=== PATIENT | female | born 1980 ===

== ENCOUNTER 2022-10-04 00:37 | Emergency (ER) | payer BC ==
[2022-10-04] MEDS ORDERED: NA CHLORIDE 0.9% 1,000 ML ONE (00:59)
[2022-10-04] MEDS ORDERED: FAMOTIDINE 20 MG/2 ML VIAL IV ONE (00:59)
[2022-10-04] MEDS ORDERED: MORPHINE 4 MG/ML SYR ONE (00:59)
[2022-10-04] MEDS ORDERED: ONDANSETRON 4 MG/2 ML VIAL ONE (00:59)
[2022-10-04 01:09] LABS: Absolute Lymphocytes (CBC) 4.9 K/uL (0.7-4.9); Hematocrit 38.7 % (36.0-45.0); Lymphocytes % 43.5 % (15.3-44.8); MCV 89.8 fL (80-100); MPV 7.5 fL (7.6-11.3); RBC Red Blood Cell Count 4.31 M/uL (3.86-4.86)
[2022-10-04] MEDS ORDERED: HYDROMORPHONE HCL 1 MG/ML INJ ONE (01:26)
[2022-10-04] MEDS ORDERED: PROMETHAZINE INJ 25 MG/ML AMP ONE (01:26)
[2022-10-04 01:27] LABS: Albumin 3.8 g/dL (3.4-5.0); Bilirubin Total 0.2 mg/dL (0.2-1.0); Potassium 3.6 mEq/L (3.5-5.1); Protein, Total 7.1 g/dL (6.4-8.2)
--- NOTE | 2022-10-04 02:07 | ER ---
Nurse's Notes [facility] Name: Johny Lewis Age: 41 yrs Sex: Female : 1980 Arrival Date: 10/04/2022 Time: 00:37 Bed 6 Private MD: Diagnosis: Torsion of right ovary and ovarian pedicle;Other and unspecified ovarian cysts-Hemorrhagic Presentation: 10/04 01:00 Chief complaint: Patient states: abdominal pain all day. 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 Coronavirus screen: Client denies travel out of the [place] in the last 14 days. At this time, the client does not indicate any symptoms associated with coronavirus-19. Ebola Screen: No symptoms or risks identified at this time. Initial Sepsis Screen: Does the patient meet any 2 criteria? No. Patient's initial sepsis screen is negative. Does the patient have a suspected source of infection? No. Patient's initial sepsis screen is negative. Risk Assessment: Do you want to hurt yourself or someone else? Patient reports no desire to harm self or others. Onset of symptoms was October 04, 2022. 01:00 Method Of Arrival: Wheelchair lg3 01:00 Acuity: PORTER 3 lg3 Triage Assessment: 01:03 General: Appears in no apparent distress. uncomfortable, Behavior is crying, fussy, lg3 restless. Pain: Complains of pain in right upper quadrant and right lower quadrant Noted to be crying, grimacing, guarding, moaning, restless, Also complains of nausea. EENT: No deficits noted. No signs and/or symptoms were reported regarding the EENT system. Neuro: No deficits noted. Wilkins Agitation-Sedation Scale (RASS): +1 Restless Level of Consciousness is awake, alert, obeys commands, Oriented to person, place, time, situation. Cardiovascular: No deficits noted. Denies chest pain, shortness of breath, Capillary refill < 3 seconds Clubbing of nail beds is absent JVD is absent Patient's skin is warm and dry. Respiratory: No deficits noted. Airway is patent Respiratory effort is even, unlabored, Respiratory pattern is regular, symmetrical. GI: Abdomen is round non-distended, obese, Abd is soft X 4 quads Abdomen is tender to palpation in right upper quadrant and right lower quadrant Guarding noted in right upper quadrant and right lower quadrant Reports lower abdominal pain, upper abdominal pain, cramping. : No deficits noted. No signs and/or symptoms were reported regarding the genitourinary system. Derm: No deficits noted. No signs and/or symptoms reported regarding the dermatologic system. Skin is intact, is healthy with good turgor, Skin is dry, Skin is normal, Skin temperature is warm. Musculoskeletal: No deficits noted. No signs and/or symptoms reported regarding the musculoskeletal system. Circulation, motion, and sensation intact. Range of motion: intact in all extremities. 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 - Social history:: Smoking status: Patient denies any tobacco usage or history of. Patient uses alcohol, occasionally. Screenin:18 [facility] ED Fall Risk Assessment (Adult) History of falling in the last 3 months, lg3 including since admission No falls in past 3 months (0 pts). Abuse screen: Denies threats or abuse. Denies injuries from another. Nutritional screening: No deficits noted. Tuberculosis screening: No symptoms or risk factors identified. Assessment: 01:18 General: see triage assessment. GI: Bowel sounds present X 4 quads. lg3 02:02 Reassessment: Patient appears in no apparent distress at this time. No changes from lg3 previously documented assessment. Patient and/or family updated on plan of care and expected duration. Pain level reassessed. Patient is alert, oriented x 3, equal unlabored respirations, skin warm/dry/pink. 02:59 Pain: Complains of pain in right lower quadrant Pain currently is 10 out of 10 on a lg3 pain scale. Noted to be crying, grimacing, guarding, moaning, resistant to movement, restless. 04:12 Reassessment: Patient appears in no apparent distress at this time. No changes from lg3 previously documented assessment. Patient and/or family updated on plan of care and expected duration. Pain level reassessed. Patient is alert, oriented x 3, equal unlabored respirations, skin warm/dry/pink. Patient states symptoms have improved. pt quietly resting with family at bedside . Vital Signs: 01:00 BP 120 / 77; Pulse 93; Resp 17 S; Temp 97.9(A); Pulse Ox 100% on R/A; Weight 86.18 kg lg3 (R); Height 5 ft. 2 in. (R); Pain 10/10; 02:59 BP 130 / 79; Pulse 86; Resp 19 S; Pulse Ox 100% on 2 lpm NC; lg3 01:00 Body Mass Index 34.75 (86.18 kg, 157.48 cm) lg3 01:00 Pain Scale: Adult lg3 ED Course: 00:40 Patient arrived in ED. ag3 00:42 Martha Briones PA-C is PHCP. sb4 00:42 Chet Montana MD is Attending Physician. sb4 00:48 Earnestine Wiley, RN is Primary Nurse. kd3 01:00 Shante Manning, ONEIDA is Primary Nurse. lg3 01:03 Triage completed. lg3 01:03 Arm band placed on right wrist. lg3 01:05 Inserted saline lock: 20 gauge in right antecubital area, using aseptic technique. rv1 Blood collected. 01:05 CBC with Diff Sent. rv1 01:05 CMP Sent. rv1 01:05 Lipase Sent. rv1 01:18 Patient has correct armband on for positive identification. Placed in gown. Bed in low lg3 position. Call light in reach. Side rails up X 1. Client placed on continuous cardiac and pulse oximetry monitoring. NIBP monitoring applied. Door closed. Noise minimized. Warm blanket given. Family accompanied patient. 02:06 Initiated transfer with Lisette Bingham at [facility]. rv1 02:11 Transvaginal Study (probe): r/o torsion In Process Unspecified. EDMS 03:19 CT Abd/Pelvis - IV Contrast Only In Process Unspecified. EDMS 03:38 Pt accepted to [facility] by Dr. Khalil. rv1 04:45 No provider procedures requiring assistance completed. Patient transferred, IV remains lg3 in place. intact, No redness/swelling at site. Administered Medications: 00:55 Drug: NS 0.9% IV 1000 ml Route: IV; Rate: 1 bolus; Site: right antecubital; kd3 04:11 Follow up: Response: No adverse reaction; IV Status: Completed infusion; IV Intake: lg3 1000ml 00:55 Drug: Famotidine IVP 20 mg Route: IVP; Site: right antecubital; kd3 04:11 Follow up: Response: No adverse reaction lg3 00:55 Drug: Ondansetron IVP 4 mg Route: IVP; Site: right antecubital; kd3 04:11 Follow up: Response: No adverse reaction; No change in condition lg3 00:55 Drug: morphine IVP or IV 4 mg Route: IVP; Infused Over: 4 mins; Site: right antecubital;kd3 04:11 Follow up: Response: No adverse reaction; No change in condition lg3 01:13 CANCELLED (Physician Discretion): metoCLOPramide IVP 10 mg IVP once; over 1 to 2 minutessb4 01:13 CANCELLED (Physician Discretion): diphenhydrAMINE IVP 12.5 mg IVP once sb4 01:19 Drug: HYDROmorphone IVP 1 mg Route: IVP; Site: right antecubital; lg3 04:10 Follow up: Response: No adverse reaction; Pain is decreased lg3 01:19 Drug: Promethazine IM 12.5 mg Route: IM; Site: left deltoid; lg3 04:10 Follow up: Response: No adverse reaction; Marked relief of symptoms; Nausea is lg3 decreased; Vomiting decreased; RASS: Drowsy (-1) 03:04 Drug: fentaNYL (PF) IVP 50 mcg Route: IVP; Site: right antecubital; lg3 04:10 Follow up: Response: No adverse reaction; Marked relief of symptoms; Pain is decreased; lg3 RASS: Drowsy (-1) Medication: 04:45 VIS not applicable for this client. lg3 Intake: 04:11 IV: 1000ml; Total: 1000ml. lg3 Outcome: 02:07 ER care complete, transfer ordered by . sb4 04:45 Transferred by ground [facility] to [facility], Transfer form lg3 completed. 04:45 Condition: stable 04:45 Instructed on the need for transfer, Demonstrated understanding of instructions. 04:45 Patient left the ED. lg3 Signatures: Dispatcher [employer] EDMS Wendy Villavicencio ag3 Shante Manning, RN RN lg3 Earnestine Wiley RN RN kd3 Martha Briones, PAGuero PAGuero sb4 Nandini Archer
--- NOTE | 2022-10-04 02:07 | EDPHYS ---
Physician Documentation [facility] Name: Johny Lewis Age: 41 yrs Sex: Female : 1980 Arrival Date: 10/04/2022 Time: 00:37 Bed 6 Private MD: ED Physician Chet Montana HPI: 10/04 00:48 This 41 yrs old Female presents to ER via Unassigned with complaints of Abdominal Pain, sb4 Vomiting. 00:48 The patient presents with abdominal pain right lower quadrant. Onset: The sb4 symptoms/episode began/occurred this morning. The symptoms do not radiate. Associated signs and symptoms: Pertinent positives: nausea and vomiting, dysuria, Pertinent negatives: diarrhea, hematuria, vaginal discharge. Severity of pain: in the emergency department the pain is actually worse markedly, is a 10 / 10. The patient has not experienced similar symptoms in the past. 41 year old female presents with RLQ that began yesterday and became acutely worse this evening awakening her from sleep. Does report history of "gallbladder issues." Endorses nausea and vomiting. Reports some alcohol intake last night. 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 - Social history:: Smoking status: Patient denies any tobacco usage or history of. Patient uses alcohol, occasionally. ROS: 00:48 Constitutional: Negative for fever, chills, and weight loss, Eyes: Negative for injury, sb4 pain, redness, and discharge, Cardiovascular: Negative for chest pain, palpitations, and edema, Respiratory: Negative for shortness of breath, cough, wheezing, and pleuritic chest pain, Back: Negative for injury and pain, MS/Extremity: Negative for injury and deformity, Skin: Negative for injury, rash, and discoloration. 00:48 Abdomen/GI: Positive for abdominal pain, nausea and vomiting, Negative for diarrhea, hematemesis, rectal bleeding, bowel incontinence. 00:48 : Positive for burning with urination, Negative for urinary frequency, small amounts, hematuria, pelvic pain, vaginal bleeding, vaginal discharge. 00:48 All other systems are negative. Exam: 00:48 Cardiovascular: Regular rate and rhythm with a normal S1 and S2. Respiratory: Lungs sb4 have equal breath sounds bilaterally, clear to auscultation and percussion. No rales, rhonchi or wheezes noted. No increased work of breathing, no retractions or nasal flaring. Back: No spinal tenderness. No costovertebral tenderness. Full range of motion. Skin: Warm, dry with normal turgor. Normal color with no rashes, no lesions, and no evidence of cellulitis. MS/ Extremity: Pulses equal, no cyanosis. Neurovascular intact. Full, normal range of motion. Neuro: Awake and alert, GCS 15, oriented to person, place, time, and situation. Cranial nerves II-XII grossly intact. Motor strength 5/5 in all extremities. Sensory grossly intact. Cerebellar exam normal. Normal gait. 00:48 Constitutional: The patient appears alert, awake, anxious, in obvious distress, in obvious pain, uncomfortable. 00:48 Abdomen/GI: Inspection: abdomen appears normal, Bowel sounds: normal, in all quadrants, Palpation: soft, in all quadrants, moderate abdominal tenderness, in the right lower quadrant, voluntary guarding, is elicited in the suprapubic area. Vital Signs: 01:00 BP 120 / 77; Pulse 93; Resp 17 S; Temp 97.9(A); Pulse Ox 100% on R/A; Weight 86.18 kg lg3 (R); Height 5 ft. 2 in. (R); Pain 10/10; 02:59 BP 130 / 79; Pulse 86; Resp 19 S; Pulse Ox 100% on 2 lpm NC; lg3 01:00 Body Mass Index 34.75 (86.18 kg, 157.48 cm) lg3 01:00 Pain Scale: Adult lg3 MDM: 00:43 Patient medically screened. sb4 00:48 Differential diagnosis: bowel obstruction, cholecystitis, Cholelithiasis, sb4 diverticulitis, Endometriosis, gastritis, non-specific abd pain, pancreatitis, Pyelonephritis, Ureterolithiasis, urinary tract infection. 02:05 Data reviewed: vital signs, nurses notes, lab test result(s), radiologic studies, I sb4 have discussed the patient's presentation/case with the attending Emergency Department Physician;. Consideration of Admission/Observation. Discussion of test interpretation with radiology: I had a discussion with radiology regarding a test interpretation. Historians other than the Patient: Spouse/Significant Other: . Counseling: I had a detailed discussion with the patient and/or guardian regarding: the historical points, exam findings, and any diagnostic results supporting the discharge/admit diagnosis, lab results, radiology results, the need to transfer to another facility, for higher level of care, [facility] does not immediately have the required specialist. 02:59 Transition of care: After a detail discussion of the patient's case, care is sb4 transferred to Chet Montana MD. 03:02 ED course: U/S tech gave verbal report of possible ovarian torsion, radiology read rn states no definitive ovarian tissue identified and unable to comment if torsion. CT pending. . 10/04 00:47 Order name: CBC with Diff; Complete Time: 01:19 4 10/04 00:47 Order name: CMP; Complete Time: 01:30 4 10/04 00:47 Order name: Lipase; Complete Time: 01:30 4 10/04 01:01 Order name: CT Abd/Pelvis - IV Contrast Only [facility] 10/04 01:10 Order name: Transvaginal Study (probe): r/o torsion 4 10/04 00:47 Order name: IV Saline Lock; Complete Time: 00:55 sb4 10/04 00:47 Order name: Labs collected and sent; Complete Time: 00:55 sb4 Administered Medications: 00:55 Drug: NS 0.9% IV 1000 ml Route: IV; Rate: 1 bolus; Site: right antecubital; kd3 04:11 Follow up: Response: No adverse reaction; IV Status: Completed infusion; IV Intake: lg3 1000ml 00:55 Drug: Famotidine IVP 20 mg Route: IVP; Site: right antecubital; kd3 04:11 Follow up: Response: No adverse reaction lg3 00:55 Drug: Ondansetron IVP 4 mg Route: IVP; Site: right antecubital; kd3 04:11 Follow up: Response: No adverse reaction; No change in condition lg3 00:55 Drug: morphine IVP or IV 4 mg Route: IVP; Infused Over: 4 mins; Site: right antecubital;kd3 04:11 Follow up: Response: No adverse reaction; No change in condition lg3 01:13 CANCELLED (Physician Discretion): metoCLOPramide IVP 10 mg IVP once; over 1 to 2 minutessb4 01:13 CANCELLED (Physician Discretion): diphenhydrAMINE IVP 12.5 mg IVP once sb4 01:19 Drug: HYDROmorphone IVP 1 mg Route: IVP; Site: right antecubital; lg3 04:10 Follow up: Response: No adverse reaction; Pain is decreased lg3 01:19 Drug: Promethazine IM 12.5 mg Route: IM; Site: left deltoid; lg3 04:10 Follow up: Response: No adverse reaction; Marked relief of symptoms; Nausea is lg3 decreased; Vomiting decreased; RASS: Drowsy (-1) 03:04 Drug: fentaNYL (PF) IVP 50 mcg Route: IVP; Site: right antecubital; lg3 04:10 Follow up: Response: No adverse reaction; Marked relief of symptoms; Pain is decreased; lg3 RASS: Drowsy (-1) Disposition: 05:13 Co-signature as Attending Physician, Chet Montana MD I reviewed the patient's care rn provided by the Advanced Practice Provider and agree with the diagnosis and treatment plan. Disposition Summary: 10/04/22 02:07 Transfer Ordered Transfer Location: [facility] sb4 Reason: Higher level of care sb4 Condition: Serious sb4 Problem: new sb4 Symptoms: are unchanged sb4 Accepting Physician: FAISAL(10/04/22 04:45) lg3 Diagnosis - Torsion of right ovary and ovarian pedicle sb4 - Other and unspecified ovarian cysts - Hemorrhagic rn Forms: - Medication Reconciliation Form sb4 - SBAR form sb4 Signatures: Dispatcher [employer] EDChet Melgar MD MD rn Gibson, Lacie, RN RN lg3 Earnestine Wiley RN RN callie3 Martha Briones PA-C PA-C sb4 Corrections: (The following items were deleted from the chart) 01:13 01:11 metoCLOPramide IVP 10 mg IVP once; over 1 to 2 minutes ordered. sb4 sb4 01:13 01:11 diphenhydrAMINE IVP 12.5 mg IVP once ordered. sb4 sb4 01:17 01:09 Transvaginal Ob+US.RAD.BRZ ordered. EDMS EDMS 04:13 02:07 OBMELISSA sb4 rn 04:45 04:13 OBMELISSA rn lg3
[2022-10-04] MEDS ORDERED: FENTANYL CITR 100 MCG/2 ML ONE (02:53)
[2022-10-04 06:54] VITALS: TEMP 97.9; O2SAT 100
[2022-10-04 06:55] VITALS: BP 130/79
--- NOTE | 2022-10-04 14:21 | RAD REPORT ---
EXAM DESCRIPTION: CT - Abdomen Pelvis W Contrast - 10/04/2022 6:33 am CLINICAL HISTORY: ACUTE RIGHT ABD PAIN, VOMITING TECHNIQUE: Axial computed tomography images of the abdomen and pelvis with intravenous contrast. S agittal and coronal reformatted images were created and reviewed. This CT exam was performed using one or more of the following dose reduction techniques: automated exposure control, adjustment of t he mA and/or kV according to patient size, and/or use of iterative reconstruction technique. COMPARISON: CT Abdomen Pelvis dated 12/12/2021 FINDINGS: Lung bases: Minimal bibasilar subsegmental atelectasis/pleural parenchymal scar. ABDOMEN: Liver: Unremarkable. No mass. Gallbladder and bile ducts: Unremarkable. No calcified stones. No ductal dilation. Pancreas: Unremarkable. No mass. No ductal dilation. Spleen: Unremarkable. No splenomegaly. Adrenals: Unremarkable. No mass. Kidneys and ureters: Unremarkable. Normal renal cortical enhancement. No calculi. No hydronep hrosis. Excreted contrast is present within both renal collecting systems bilaterally on delayed im ages. Stomach and bowel: Unremarkable. No obstruction. No mucosal thickening. PELVIS: Appendix: Normal caliber appendiceal stump. No findings to suggest acute appendicitis. Bladder: Unremarkable. No mass. Reproductive: Prior hysterectomy. Bilateral ovarian cysts measuring 6.5 cm on the right and 4.5 c m on the left. The right-sided cyst is mildly complex. ABDOMEN and PELVIS: Intraperitoneal space: Small amount of free fluid within the cul-de-sac. No free air. Bones/joints: Mild multilevel osteophytic lipping. No acute fracture. No dislocation. Soft tissues: Unremarkable. Vasculature: Mild atherosclerotic disease. No abdominal aortic aneurysm. Lymph nodes: Unremarkable. No enlarged lymph nodes. IMPRESSION: 1. No acute inflammatory process identified within the abdomen and pelvis. 2. Hemorrhagic right ovarian cyst measuring 6.5 cm. Simple appearing left ovarian cyst measuring 4.5 cm. Recommend ultrasound follow-up in 6-12 weeks. If not resolved, ultrasound follow-up an nually. Note: This recommendation does not apply to premenarchal patients and to those with increas ed risk (genetic, family history, elevated tumor markers or other high-risk factors) of ovarian cance r. Reference: Radiology 2010 Nov;256(3):943-54 3. Other findings as above. Electronically signed by: Darin Rodriguez MD 10/04/2022 3:56 AM CDT Due to temporary technical issues with the PACS/Fluency reporting system, reports are being signed by the in house radiologists without review as a courtesy to insure prompt reporting. The interpreting radiologist is fully responsible for the content of the report.
--- NOTE | 2022-10-04 19:23 | RAD REPORT ---
EXAM DESCRIPTION: US - Transvaginal Study Probe - 10/04/2022 2:08 am CLINICAL HISTORY: The patient is 41 years old and is Female; ABD PAIN TECHNIQUE: Real-time transvaginal pelvic ultrasound with image documentation. Transvaginal imaging was used for better evaluation of the endometrium and adnexa. COMPARISON: No relevant prior studies available. FINDINGS: UTERUS/CERVIX: The uterus is surgically absent. RIGHT OVARY: Within the right adnexa, a cyst within a cyst is present. This measures approximatel y 6.9 cm. Definite ovarian tissue is not seen. LEFT OVARY: A left ovarian cyst measuring approximately 5.0 cm is present. No follow-up imaging i s recommended. A minimal peripheral rind of ovarian tissue is present. Normal blood flow. FREE FLUID: Suggestion of free fluid within the pelvis. BLADDER: Empty bladder which cannot be evaluated with this probe. IMPRESSION: 1. Complex right adnexal cyst. Definite ovarian tissue is not seen to assess for torsi on. Recommend correlation with CT results. Consider transabdominal pelvic ultrasound or MRI if indica ben. 2. Simple left ovarian cyst without evidence of torsion. Electronically signed by: Beatrice Dye MD 10/04/2022 2:47 AM CDT Due to temporary technical issues with the PACS/Fluency reporting system, reports are being signed by the in house radiologists without review as a courtesy to insure prompt reporting. The interpreting radiologist is fully responsible for the content of the report.
--- NOTE | 2022-10-07 15:43 | EKG ---
Test Date: 2022-10-04 Test Time: 02:18:54 Automatic Steel Tie Adjuster: ODALIS MEASUREMENT RESULTS: Intervals: Rate: 75 MT: 178 QRSD: 82 QT: 372 QTc: 415 [place]: P: 63 MT: 178 QRS: 75 T: 62 INTERPRETIVE STATEMENTS: Normal sinus rhythm Normal ECG No previous ECG available for comparison Electronically Signed On 10-07-22 15:41:58 CDT by Jadon Cobb
== END 2022-10-04 04:45 | disposition short-term general hospital (02) ==
LOC: ER 00:37
DX: N83.511 Torsion of right ovary and ovarian pedicle (principal); N83.201 Unspecified ovarian cyst, right side
CPT/HCPCS: 96361; 93005; 85025; 36415; 83690; 80053; 74177; 76830; 96375; 96372; 96374; 99285; Q9967; J2550; J3010; J1170; J2405; J7030